=== PATIENT | female | born 1990 | race African-American/Black ===

== ENCOUNTER 2020-07-20 23:49 | Emergency (ER) | payer OTHER | END 2020-07-21 05:32 | disposition home or self-care (01) | LOC: CSHERS 23:49 | DX: F10.129 Alcohol abuse with intoxication, unspecified (principal); F19.10 Other psychoactive substance abuse, uncomplicated; I10 Essential (primary) hypertension; M06.9 Rheumatoid arthritis, unspecified; E03.9 Hypothyroidism, unspecified | CPT/HCPCS: 93005 ==

== ENCOUNTER 2021-03-10 18:41 | Emergency (ER) | payer OTHER ==
[2021-03-10 19:34] LABS: #Monocytes 0.4 10x3/uL (0.0-1.1); #Neutrophils 2.8 10x3/uL (1.5-8.4); %Basophils 0.5 % (0.0-2.0); %Monocytes 9.9 % (0.0-10.0); %Neutrophils 68.4 % (40.0-75.0); Hemoglobin 12.6 g/dL (12.0-15.5); Mean Corpuscular HGB CONC 32.2 g/dL (32.0-36.0); Mean Corpuscular Hemoglobin 30.5 pg (27.0-33.0); Mean Corpuscular Volume 94.7 fl (81.6-98.3); Mean Platelet Volume 11.8 fl (7.4-10.4); Platelet Count 151 10x3/uL (150-450); RBC Distribution Width 13.3 % (11.5-14.5); Red Blood Cell (RBC) Count 4.13 10x6/uL (3.90-5.03)
[2021-03-10] MEDS ORDERED: Ondansetron PF 4 MG/2 ML Vial ONE (19:37)
[2021-03-10] MEDS ORDERED: Ketorolac Tromethamine 30 MG/ML VIAL ONE (19:37)
[2021-03-10 19:45] LABS: BHCG - Serum Negative (NEGATIVE); Pregs Control Background? CLEAR/WHITE (CLR/WHITE); Pregs Control Bar Appear? YES (CONTROL BAR)
[2021-03-10 19:52] LABS: ALT (SGPT) 13 U/L (8-55); AST (SGOT) 13 U/L (5-34); Albumin 3.9 g/dL (3.5-5.0); Alkaline Phosphatase 114 U/L (40-110); Anion Gap 13 mmol/L (10-20); BUN (Urea Nitrogen) 8 mg/dL (7.0-18.7); Bilirubin, Total 0.3 mg/dL (0.2-1.2); Calc. Creatinine Clearance 0 mL/min (70-130); Calcium 8.9 mg/dL (7.8-10.44); Carbon Dioxide 25 mmol/L (22-29); Chloride 103 mmol/L (98-107); Globulin 2.9 g/dL (2.4-3.5); Glucose 62 mg/dL (70-105); Potassium 3.1 mmol/L (3.5-5.1); Protein, Total 6.8 g/dL (6.0-8.3); Sodium 138 mmol/L (136-145)
[2021-03-10 19:59] LABS: Troponin I Less than 0.010 ng/mL (< 0.028)
[2021-03-10 20:19] LABS: SARS-CoV-2 NAA Rapid Test DETECTED (NotDetected)
[2021-03-10] MEDS ORDERED: Potassium Chloride 20 MEQ TAB ONE (20:54)
== END 2021-03-10 20:26 | disposition home or self-care (01) ==
LOC: CSHERS 18:41
DX: U07.1 COVID-19 (principal); E87.6 Hypokalemia; I10 Essential (primary) hypertension; E03.9 Hypothyroidism, unspecified
CPT/HCPCS: 0240U; 71045; 80053; 84484; 84703; 85025; 85379; 93005; 94760; 96374; 96375; J1885; J2405